=== PATIENT | female | born 1950 | race African-American/Black ===

== ENCOUNTER 2018-11-15 12:13 | Emergency (ER) | payer MEDICARE, BC ==
[~2018-11-15] VITALS: Ht 162.6 cm; Wt 91.1 kg
[2018-11-15 13:20] LABS: BASOPHILS % 1.2 % (0.0-2.0); EOSINOPHILS % 1.5 % (0.0-5.0); HEMATOCRIT. 38.8 % (36.0-48.0); LYMPHOCYTES % 30.3 % (20.0-50.0); MEAN CORPUSCULAR VOLUME 80.4 fL (81.0-99.0); MEAN PLATELET VOLUME 8.2 fl (7.4-10.4); PLATELET 268 x1000/uL (130-400); RED BLOOD CELL COUNT 4.83 mill/uL (4.2-5.4); RED CELL DISTRIBUTION WIDTH 15.4 % (11.6-14.6)
[2018-11-15 13:28] LABS: CHLORIDE 101 mEq/L (98-107)
[2018-11-15] MEDS ORDERED: ALBUTEROL (0.083%) 2.5MG/3ML NEB HHN STA (13:52)
[2018-11-15] MEDS ORDERED: ALBUTEROL (0.083%) 2.5MG/3ML NEB ONE (14:10)
[2018-11-15 14:53] VITALS: BP 156/56
== END 2018-11-15 14:55 | disposition home or self-care (01) ==
LOC: ER 12:13
DX: J40 Bronchitis, not specified as acute or chronic (principal); I10 Essential (primary) hypertension; E78.5 Hyperlipidemia, unspecified; E78.00 Pure hypercholesterolemia, unspecified; Z90.710 Acquired absence of both cervix and uterus; Z88.2 Allergy status to sulfonamides
CPT/HCPCS: 36415; 71045; 80048; 83880; 84484; 85025; 93005; 94640; 99284; J7611